=== PATIENT | female | born 1980 | race Caucasian/White ===

== ENCOUNTER 2020-06-28 15:38 | Emergency (ER) | payer SELFPAY ==
[2020-06-28 15:58] VITALS: BP 119/57
[2020-06-28] MEDS ORDERED: LIDOCAINE-MPF (1%) 10 MG/1 ML VIAL 5 ML INFILTRATI ONE (17:08)
--- NOTE | 2020-06-28 17:08 | Emergency Department Report ---
ED Female HPI - General Chief complaint: Urogenital-Female Stated complaint: STD CHECK Time Seen by Provider: 06/28/20 16:52 Source: patient Mode of arrival: Ambulatory Limitations: No Limitations - History of Present Illness Initial comments: 40-year-old female presents to the ER today with complaints of abnormal vaginal discharge. Patient states that she typically has a normal vaginal discharge, but she noticed in the past 2 months she has been having increasing amounts of discharge. She described as a mucousy discharge with the yellow discoloration to it. Patient admits that she has several sexual partners and some of which she engaged with unprotected intercourse. She states that she is concerned for possible STD. Her last menstrual cycle was 2 days ago. She denies any vaginal pain, rash or itching or any abnormal vaginal bleeding. She denies any pelvic or abdominal pain or back pain. MD Complaint: vaginal discharge -: Gradual (1 mth ) - Related Data Previous Rx's Medication Instructions Recorded Last Taken Type DOXYCYCLINE Hyclate [Vibramycin 100 mg PO Q12HR #14 capsule 06/28/20 Unknown Rx CAP] Allergies Allergy/AdvReac Type Severity Reaction Status Date / Time No Known Allergies Allergy Unverified 03/30/18 09:44 ED Review of Systems ROS: Stated complaint: STD CHECK Other details as noted in HPI Comment: All other systems reviewed and negative Constitutional: denies: chills, fever Eyes: denies: eye pain, eye discharge, vision change ENT: denies: ear pain, throat pain Respiratory: denies: cough, shortness of breath, wheezing Cardiovascular: denies: chest pain, palpitations, dyspnea on exertion, orthopnea, edema, syncope, paroxysmal nocturnal dyspnea Endocrine: no symptoms reported Gastrointestinal: denies: abdominal pain, nausea, vomiting, diarrhea, constipation, hematemesis, melena, hematochezia Genitourinary: discharge. denies: urgency, dysuria, frequency, hematuria, abnormal menses, dyspareunia Musculoskeletal: denies: back pain, joint swelling, arthralgia Skin: denies: rash, lesions, change in color, change in hair/nails Neurological: denies: headache, weakness, numbness, paresthesias, confusion, abnormal gait, vertigo Psychiatric: denies: anxiety, depression Hematological/Lymphatic: denies: easy bleeding, easy bruising ED Past Medical Hx - Past Medical History Previous Medical History?: No - Surgical History Past Surgical History?: No - Social History Smoking Status: Never Smoker - Medications Home Medications: Home Medications Medication Instructions Recorded Confirmed Last Taken Type DOXYCYCLINE Hyclate [Vibramycin 100 mg PO Q12HR #14 capsule 06/28/20 Unknown Rx CAP] ED Physical Exam - General Limitations: No Limitations General appearance: alert, in no apparent distress - Head Head exam: Present: atraumatic, normocephalic, normal inspection - ENT ENT exam: Present: normal exam, mucous membranes moist - Respiratory Respiratory exam: Present: normal lung sounds bilaterally. Absent: respiratory distress - Cardiovascular Cardiovascular Exam: Present: regular rate, normal rhythm, normal heart sounds - GI/Abdominal GI/Abdominal exam: Present: soft. Absent: distended, tenderness, guarding, rebound - Extremities Exam Extremities exam: Present: normal inspection - Back Exam Back exam: Present: normal inspection - Neurological Exam Neurological exam: Present: alert, oriented X3, CN II-XII intact, normal gait - Psychiatric Psychiatric exam: Present: normal affect, normal mood - Skin Skin exam: Present: intact ED Course Vital Signs 06/28/20 15:57 Temperature 98.2 F Pulse Rate 58 L Respiratory 17 Rate Blood Pressure 119/57 [Right] O2 Sat by Pulse 100 Oximetry Critical care attestation.: If time is entered above; I have spent that time in minutes in the direct care of this critically ill patient, excluding procedure time. ED Disposition Clinical Impression: Vaginitis, Concern about STD in female without diagnosis Disposition: DC-01 TO HOME OR SELFCARE Is pt being admited?: No Does the pt Need Aspirin: No Condition: Stable Instructions: Vaginitis, [id number], Safe Sex Additional Instructions: Recommend that you take the doxycycline as prescribed. Recommend that you follow-up with the local health department for HIV and hepatitis testing. I recommend that you practice safe sex. Recommend no sexual intercourse for the next 7 days. Your partners should get tested and treated as well. Follow-up with the PHYSICS DEPARTMENT CHAIR or local health department. Return to the ER if your symptoms changes or worsens in any way. Prescriptions: DOXYCYCLINE Hyclate [Vibramycin CAP] 100 mg PO Q12HR #14 capsule Referrals: NURY RICE MD [Staff Physician] - 3-5 Days [facility] [Provider Group] - 3-5 Days Time of Disposition: 18:06
[2020-06-28 17:50] LABS: Bacteria,Urine 1+ /HPF (Negative); Bilirubin,Urine NEG (Negative); Blood,Urine NEG (Negative); Color,Urine Yellow (Yellow); HCG Qualitative,Urine Negative (Negative); Mucus,Urine 2+ /HPF; Protein,Urine <15 mg/dL mg/dL (Negative); Urobilinogen,Urine < 2.0 mg/dL (<2.0)
== END 2020-06-28 18:17 | disposition home or self-care (01) ==
LOC: ED 15:38
DX: N76.0 Acute vaginitis (principal); Z20.2 Contact with and (suspected) exposure to infections with a predominantly sexual mode of transmission; Z79.899 Other long term (current) drug therapy
CPT/HCPCS: 81001; 81025; 87210; 87591; 96372; 99283; J0696

== ENCOUNTER 2021-02-06 15:30 | Emergency (ER) | payer SELFPAY | END 2021-02-06 16:28 | disposition left against medical advice (07) | LOC: ED 15:30 | DX: Z53.21 Procedure and treatment not carried out due to patient leaving prior to being seen by health care provider (principal) ==

== ENCOUNTER 2021-04-04 14:43 | Emergency (ER) | payer SELFPAY | END 2021-04-04 17:18 | disposition left against medical advice (07) | LOC: ED 14:43 | DX: R42 Dizziness and giddiness (principal); Z53.21 Procedure and treatment not carried out due to patient leaving prior to being seen by health care provider ==

== ENCOUNTER 2021-04-10 11:54 | Emergency (ER) | payer SELFPAY ==
[2021-04-10 16:30] VITALS: BP 167/86
--- NOTE | 2021-04-10 17:21 | Emergency Department Report ---
ED Headache HPI - General Chief Complaint: Headache Stated Complaint: HEADACHE Time Seen by Provider: 04/10/21 17:16 - History of Present Illness Initial Comments: Patient is a 40-year-old female with no significant past medical history is presenting with right-sided facial pain. States she has some congestion. Pain is worse with palpation to the right cheek. States that she feels as though it is swollen however she is not noticed any change when looking in the mirror. Pain is been 8 out of 10 in severity according to the patient. Denies fevers. States the nasal drainage is currently clear. Allergies/Adverse Reactions: Allergies No Known Allergies Allergy (Unverified 04/10/21 16:30) Home Medications: Ambulatory Orders DOXYCYCLINE Hyclate [Vibramycin CAP] 100 mg PO Q12HR #14 capsule 06/28/20 Amoxicillin/Potassium Clav [Augmentin 875-125 Tablet] 1 each PO BID #20 tablet 04/10/21 Fluticasone [Flonase] 1 spray NS QDAY #1 bottle 04/10/21 Ketorolac [Toradol] 10 mg PO Q6H PRN #12 tablet 04/10/21 predniSONE [Deltasone] 50 mg PO QDAY #5 tab 04/10/21 ED Review of Systems ROS: Stated complaint: HEADACHE Other details as noted in HPI Comment: All other systems reviewed and negative ED Past Medical Hx - Social History Smoking Status: Never Smoker - Medications Home Medications: Home Medications Medication Instructions Recorded Confirmed Last Taken Type DOXYCYCLINE Hyclate [Vibramycin 100 mg PO Q12HR #14 capsule 06/28/20 Unknown Rx CAP] Amoxicillin/Potassium Clav 1 each PO BID #20 tablet 04/10/21 Unknown Rx [Augmentin 875-125 Tablet] Fluticasone [Flonase] 1 spray NS QDAY #1 bottle 04/10/21 Unknown Rx Ketorolac [Toradol] 10 mg PO Q6H PRN #12 tablet 04/10/21 Unknown Rx predniSONE [Deltasone] 50 mg PO QDAY #5 tab 04/10/21 Unknown Rx ED Physical Exam - General Limitations: No Limitations General appearance: alert, in no apparent distress - Head Head exam: Present: atraumatic, normocephalic, other (pain palpation of right maxillary area) - Eye Eye exam: Present: normal appearance, PERRL, EOMI - ENT ENT exam: Present: mucous membranes moist - Neck Neck exam: Present: normal inspection - Respiratory Respiratory exam: Present: normal lung sounds bilaterally. Absent: respiratory distress, wheezes, rales, rhonchi - Cardiovascular Cardiovascular Exam: Present: regular rate, normal rhythm. Absent: systolic murmur, diastolic murmur, rubs, gallop - GI/Abdominal GI/Abdominal exam: Present: soft, normal bowel sounds. Absent: distended, tenderness, guarding, rebound - Extremities Exam Extremities exam: Present: normal inspection - Back Exam Back exam: Present: normal inspection - Neurological Exam Neurological exam: Present: alert, oriented X3 - Psychiatric Psychiatric exam: Present: normal affect, normal mood - Skin Skin exam: Present: warm, dry, intact, normal color. Absent: rash ED Course Vital Signs 04/10/21 16:27 Temperature 97.9 F Pulse Rate 60 Respiratory 18 Rate Blood Pressure 167/86 [Right] O2 Sat by Pulse 100 Oximetry ED Medical Decision Making - Medical Decision Making Patient is a 40-year-old female with right maxillary sinus tenderness. She does have some congestion and some nasal drainage. Patient was started on medication for symptomatic relief of acute sinus infection. Critical care attestation.: If time is entered above; I have spent that time in minutes in the direct care of this critically ill patient, excluding procedure time. ED Disposition Clinical Impression: Acute maxillary sinusitis Qualifiers: Recurrence: non-recurrent Qualified Code(s): J01.00 - Acute maxillary sinusitis, unspecified Disposition: HOME / SELF CARE / HOMELESS Is pt being admited?: No Does the pt Need Aspirin: No Condition: Stable Instructions: Sinusitis, Adult Referrals: PRIMARY CARE, [Primary Care Provider] - 3-5 Days Time of Disposition: 17:19
== END 2021-04-10 17:41 | disposition home or self-care (01) ==
LOC: ED 11:54
DX: J01.00 Acute maxillary sinusitis, unspecified (principal); Z79.899 Other long term (current) drug therapy
CPT/HCPCS: 99282

== ENCOUNTER 2021-06-29 19:55 | Emergency (ER) | payer SELFPAY ==
--- NOTE | 2021-06-29 20:50 | XRay Report ---
CHEST 2 VIEWS, 06/29/2021 INDICATION: Dizziness COMPARISON: Chest radiograph, 03/30/2018 FINDINGS: Support devices: None. Heart: The cardiac silhouette is normal in size. Lungs/pleura: The lungs are clear of focal airspace disease or significant pleural effusion. Additional findings: No significant acute abnormality. IMPRESSION: 1. No evidence of acute cardiopulmonary process. Signer Name: Mary Hill MD Signed: 06/29/2021 8:46 PM Workstation Name: [email or web address]
[2021-06-29] MEDS ORDERED: SODIUM CHLORIDE 0.9% 1000 ML 1,000 ML IV ONE (20:55)
[2021-06-29] MEDS ORDERED: MECLIZINE 25 MG TAB PO ONE (20:55)
[2021-06-29 21:19] LABS: Basophils # (Auto) 0.1 K/mm3 (0.0-0.1); Basophils % (Auto) 0.9 % (0.0-1.8); Eosinophils % (Auto) 1.2 % (0.0-4.3); Hematocrit 38.5 % (30.3-42.9); Hemoglobin 12.5 gm/dl (10.1-14.3); Lymphocytes # (Auto) 2.6 K/mm3 (1.2-5.4); Lymphocytes % (Auto) 35.3 % (13.4-35.0); Mean Corpuscular HGB Conc 33 % (30-34); Mean Corpuscular Volume 88 fl (79-97); Monocytes % (Auto) 7.1 % (0.0-7.3); Platelet Count 336 K/mm3 (140-440); Red Blood Count 4.37 M/mm3 (3.65-5.03); Red Cell Distribution Width 12.5 % (13.2-15.2)
[2021-06-29 21:29] LABS: Alanine Aminotransferase 13 units/L (7-56); Blood Urea Nitrogen 12 mg/dL (7-17); Calcium 8.8 mg/dL (8.4-10.2); Hemolysis Index 14
[2021-06-29 21:31] LABS: BUN/Creatinine Ratio 24
[2021-06-29] MEDS ORDERED: ONDANSETRON 4 MG/2 ML INJ IV ONE (21:44)
[2021-06-29 21:52] LABS: INR 0.82 (0.87-1.13)
[2021-06-29 21:55] LABS: Creatine Kinase MB 1.7 ng/mL (0.0-4.0)
--- NOTE | 2021-06-29 22:39 | Emergency Department Report ---
ED Dizziness HPI - General Chief Complaint: Dizziness Stated Complaint: DIZZY/LIGHTHEADED Time Seen by Provider: 06/29/21 20:54 Source: patient Mode of arrival: Ambulatory Limitations: No Limitations - History of Present Illness Initial Comments: Patient states about 30 mins ago patient states she woke up from her sleep and felt light headed and dizziness with nausea vomiting and headaches. patient denes passing out pt had history of hte same no other neurological symtpoms MD Complaint: dizziness, lightheadedness -: Gradual, minutes(s) Timing: gradual onset Description: "room spinning", nausea History of Same: Yes History of Trauma: No Severity: moderate Improves With: nothing Associated Symptoms: denies: denies other symptoms, ataxia, chest pain, confusion, diaphoresis, fever/chills, loss of appetite - Related Data Previous Rx's Medication Instructions Recorded Last Taken Type DOXYCYCLINE Hyclate [Vibramycin 100 mg PO Q12HR #14 capsule 06/28/20 Unknown Rx CAP] Amoxicillin [Trimox CAP] 500 mg PO Q8H #21 capsule 04/10/21 Unknown Rx Amoxicillin/Potassium Clav 1 each PO BID #20 tablet 04/10/21 Unknown Rx [Augmentin 875-125 Tablet] Fluticasone [Flonase] 1 spray NS QDAY #1 bottle 04/10/21 Unknown Rx Ketorolac [Toradol] 10 mg PO Q6H PRN #12 tablet 04/10/21 Unknown Rx predniSONE [Deltasone] 50 mg PO QDAY #5 tab 04/10/21 Unknown Rx Meclizine HCl 25 mg PO DAILY PRN #14 06/29/21 Unknown Rx Ondansetron [Zofran Odt] 4 mg PO Q8HR #14 tab.rapdis 06/29/21 Unknown Rx Allergies Allergy/AdvReac Type Severity Reaction Status Date / Time No Known Allergies Allergy Unverified 04/10/21 16:30 ED Review of Systems ROS: Stated complaint: DIZZY/LIGHTHEADED Other details as noted in HPI Constitutional: denies: chills, fever Eyes: denies: eye pain, eye discharge, vision change ENT: denies: ear pain, throat pain Respiratory: denies: cough, shortness of breath, wheezing Cardiovascular: denies: chest pain, palpitations Endocrine: no symptoms reported Gastrointestinal: denies: abdominal pain, nausea, diarrhea Genitourinary: denies: urgency, dysuria, discharge Musculoskeletal: denies: back pain, joint swelling, arthralgia Skin: denies: rash, lesions Neurological: denies: headache, weakness, paresthesias Psychiatric: denies: anxiety, depression Hematological/Lymphatic: denies: easy bleeding, easy bruising ED Past Medical Hx - Past Medical History Previous Medical History?: No - Surgical History Past Surgical History?: No - Social History Smoking Status: Current Every Day Smoker Substance Use Type: Alcohol - Medications Home Medications: Home Medications Medication Instructions Recorded Confirmed Last Taken Type DOXYCYCLINE Hyclate [Vibramycin 100 mg PO Q12HR #14 capsule 06/28/20 Unknown Rx CAP] Amoxicillin [Trimox CAP] 500 mg PO Q8H #21 capsule 04/10/21 Unknown Rx Amoxicillin/Potassium Clav 1 each PO BID #20 tablet 04/10/21 Unknown Rx [Augmentin 875-125 Tablet] Fluticasone [Flonase] 1 spray NS QDAY #1 bottle 04/10/21 Unknown Rx Ketorolac [Toradol] 10 mg PO Q6H PRN #12 tablet 04/10/21 Unknown Rx predniSONE [Deltasone] 50 mg PO QDAY #5 tab 04/10/21 Unknown Rx Meclizine HCl 25 mg PO DAILY PRN #14 06/29/21 Unknown Rx Ondansetron [Zofran Odt] 4 mg PO Q8HR #14 tab.rapdis 06/29/21 Unknown Rx ED Physical Exam - General Limitations: No Limitations General appearance: alert, in no apparent distress - Head Head exam: Present: atraumatic, normocephalic - Eye Eye exam: Present: normal appearance - ENT ENT exam: Present: mucous membranes moist - Neck Neck exam: Present: normal inspection - Respiratory Respiratory exam: Present: normal lung sounds bilaterally. Absent: respiratory distress - Cardiovascular Cardiovascular Exam: Present: regular rate, normal rhythm. Absent: systolic murmur, diastolic murmur, rubs, gallop - GI/Abdominal GI/Abdominal exam: Present: soft, normal bowel sounds - Extremities Exam Extremities exam: Present: normal inspection - Back Exam Back exam: Present: normal inspection - Neurological Exam Neurological exam: Present: alert, oriented X3 - Psychiatric Psychiatric exam: Present: normal affect, normal mood - Skin Skin exam: Present: warm, dry, intact, normal color. Absent: rash ED Course Vital Signs 04/02/22 04/02/22 04/02/22 20:03 20:54 21:00 Temperature 97.2 F L Pulse Rate 50 L 47 L 47 L Respiratory 16 10 L 18 Rate Blood Pressure 118/48 Blood Pressure [Left] O2 Sat by Pulse 99 99 100 Oximetry 06/29/21 06/29/21 06/29/21 21:16 21:30 21:46 Temperature Pulse Rate 55 L 48 L 65 Respiratory 18 15 13 Rate Blood Pressure 110/47 110/47 Blood Pressure [Left] O2 Sat by Pulse 98 99 99 Oximetry 06/29/21 06/29/21 06/29/21 22:00 22:08 22:16 Temperature Pulse Rate 64 68 52 L Respiratory 18 12 14 Rate Blood Pressure 101/37 101/37 101/37 Blood Pressure 101/37 [Left] O2 Sat by Pulse 99 100 98 Oximetry ED Medical Decision Making - Lab Data Result diagrams: 06/29/21 20:22 06/29/21 20:22 - EKG Data -: EKG Interpreted by Me EKG shows normal: sinus rhythm Rate: bradycardia - Radiology Data Radiology results: report reviewed, image reviewed - Medical Decision Making work up unremarkabl e, fluids given and zofrana nd meclizine , feels better, pt had history of bradycardia before, will refer to ENT Critical care attestation.: If time is entered above; I have spent that time in minutes in the direct care of this critically ill patient, excluding procedure time. ED Disposition Clinical Impression: Vertigo Disposition: 01 HOME / SELF CARE / HOMELESS Is pt being admited?: No Does the pt Need Aspirin: No Condition: Stable Referrals: PRIMARY CARE, [Primary Care Provider] - 3-5 Days
[2021-06-29 23:00] VITALS: BP 102/52
--- NOTE | 2021-06-30 15:17 | Electrocardiograph Report ---
[facility] Test Date: 2021-06-29 Test Time: 20:06:14 Pat Name: ABIMBOLA CEBALLOS Department: Room: Gender: F [employer] Machine Operator: ANDRE : 1980 Requested By: MICKY AMATO Order Number: [id number] Reading MD: Barrington Charles Measurements Intervals Hobbs Rate: 49 P: 37 VA: 154 QRS: 89 QRSD: 84 T: 43 QT: 472 QTc: 425 Interpretive Statements Slow sinus arrhythmia No previous ECG available for comparison Electronically Signed On 06-30-2021 15:17:16 EDT by Barrington Charles
== END 2021-06-29 23:26 | disposition home or self-care (01) ==
LOC: ED 19:55
DX: R42 Dizziness and giddiness (principal); F17.200 Nicotine dependence, unspecified, uncomplicated
CPT/HCPCS: 36415; 71046; 80053; 82550; 82553; 83690; 84484; 85025; 85610; 93005; 96361; 96374; 99284; J2405; J7030; Q0162

== ENCOUNTER 2021-08-01 20:34 | Emergency (ER) | payer SELFPAY ==
[2021-08-01] MEDS ORDERED: IBUPROFEN 600 MG TAB PO ONE (22:00)
[2021-08-01] MEDS ORDERED: LIDOCAINE (1%) 10 MG/1 ML VIAL 20 ML MDV INFILTRATI ONE (22:00)
[2021-08-01] MEDS ORDERED: TETANUS,DIPH,PERTUSS(ACELL) VACCINE 0.5 ML SYRINGE IM ONE (22:00)
[2021-08-01] MEDS ORDERED: ONDANSETRON 4 MG ODT TAB PO ONE (22:16)
[2021-08-01] MEDS ORDERED: HYDROcodone/ACETAMINOPHEN 5-325 MG TAB PO ONE (22:16)
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
[2021-08-02 00:22] VITALS: BP 114/53
== END 2021-08-02 00:21 | disposition home or self-care (01) ==
LOC: ED 20:34
DX: S61.411A Laceration without foreign body of right hand, initial encounter (principal); F17.200 Nicotine dependence, unspecified, uncomplicated; Z72.89 Other problems related to lifestyle; Z79.899 Other long term (current) drug therapy; Y04.8XXA Assault by other bodily force, initial encounter; Y93.89 Activity, other specified; Y92.89 Other specified places as the place of occurrence of the external cause; Y99.8 Other external cause status
CPT/HCPCS: 90471; 90715; 99282; J3490; Q0162

== ENCOUNTER 2021-08-06 18:05 | Emergency (ER) | payer SELFPAY | END 2021-08-06 18:10 | disposition left against medical advice (07) | LOC: ED 18:05 | DX: R42 Dizziness and giddiness (principal); Z53.21 Procedure and treatment not carried out due to patient leaving prior to being seen by health care provider ==

== ENCOUNTER 2021-08-07 07:51 | Emergency (ER) | payer SELFPAY ==
--- NOTE | 2021-08-07 10:58 | Emergency Department Report ---
ED Medical Clearance HPI - General Chief complaint: Medical Clearance Stated complaint: VERTIGO Time Seen by Provider: 08/07/21 10:53 Source: patient Mode of arrival: Ambulatory - History of Present Illness Initial comments: 41-year-old obese female presents to the emergency room requesting a refill on her vertigo medication. Patient states yesterday she had an episode. At this moment she denies any nausea no vomiting no dizziness or feeling of the room is spinning. She denies any chest pain shortness of breathing or headache. Patient currently does not have a primary care provider. Onset/Timin -: days(s) (Yesterday) Reason for Medical Clearance: other (Medication refill for vertigo) Alledged Intoxication: No Compliant with Home Medications: No Traumatic Symptoms: denies traumatic injury Associated Symptoms: denies: chest pain, shortness of breath, palpitations, diaphoresis, denies other symptoms, cough, fever/chills, headaches, anorexia, rash, seizure, syncope, weakness Treatments Prior to Arrival: none Home medications: Previous Rx's Medication Instructions Recorded Last Taken Type DOXYCYCLINE Hyclate [Vibramycin 100 mg PO Q12HR #14 capsule 06/28/20 Unknown Rx CAP] Amoxicillin [Trimox CAP] 500 mg PO Q8H #21 capsule 04/10/21 Unknown Rx Amoxicillin/Potassium Clav 1 each PO BID #20 tablet 04/10/21 Unknown Rx [Augmentin 875-125 Tablet] Fluticasone [Flonase] 1 spray NS QDAY #1 bottle 04/10/21 Unknown Rx Ketorolac [Toradol] 10 mg PO Q6H PRN #12 tablet 04/10/21 Unknown Rx predniSONE [Deltasone] 50 mg PO QDAY #5 tab 04/10/21 Unknown Rx Ondansetron [Zofran Odt] 4 mg PO Q8HR #14 tab.rapdis 06/29/21 Unknown Rx Ibuprofen [Motrin] 800 mg PO Q8HR PRN #30 tablet 08/02/21 Unknown Rx cephALEXin [Keflex] 500 mg PO Q8HR #30 cap 08/02/21 Unknown Rx Meclizine HCl 25 mg PO DAILY PRN #14 08/07/21 Unknown Rx Allergies/Adverse reactions: Allergies Allergy/AdvReac Type Severity Reaction Status Date / Time No Known Allergies Allergy Unverified 08/07/21 08:56 ED Review of Systems ROS: Stated complaint: VERTIGO Other details as noted in HPI Comment: All other systems reviewed and negative ED Past Medical Hx - Social History Smoking Status: Current Every Day Smoker Substance Use Type: Alcohol - Medications Home Medications: Home Medications Medication Instructions Recorded Confirmed Last Taken Type DOXYCYCLINE Hyclate [Vibramycin 100 mg PO Q12HR #14 capsule 06/28/20 Unknown Rx CAP] Amoxicillin [Trimox CAP] 500 mg PO Q8H #21 capsule 04/10/21 Unknown Rx Amoxicillin/Potassium Clav 1 each PO BID #20 tablet 04/10/21 Unknown Rx [Augmentin 875-125 Tablet] Fluticasone [Flonase] 1 spray NS QDAY #1 bottle 04/10/21 Unknown Rx Ketorolac [Toradol] 10 mg PO Q6H PRN #12 tablet 04/10/21 Unknown Rx predniSONE [Deltasone] 50 mg PO QDAY #5 tab 04/10/21 Unknown Rx Ondansetron [Zofran Odt] 4 mg PO Q8HR #14 tab.rapdis 06/29/21 Unknown Rx Ibuprofen [Motrin] 800 mg PO Q8HR PRN #30 tablet 08/02/21 Unknown Rx cephALEXin [Keflex] 500 mg PO Q8HR #30 cap 08/02/21 Unknown Rx Meclizine HCl 25 mg PO DAILY PRN #14 08/07/21 Unknown Rx ED Physical Exam - General Limitations: No Limitations General appearance: alert, in no apparent distress - Head Head exam: Present: atraumatic, normocephalic - Eye Eye exam: Present: EOMI - ENT ENT exam: Present: mucous membranes moist - Neck Neck exam: Present: normal inspection, full ROM - Respiratory Respiratory exam: Absent: respiratory distress - Cardiovascular Cardiovascular Exam: Present: regular rate - Extremities Exam Extremities exam: Present: normal inspection, full ROM - Back Exam Back exam: Present: normal inspection - Neurological Exam Neurological exam: Present: alert, oriented X3, normal gait - Psychiatric Psychiatric exam: Present: normal affect, normal mood, anxious - Skin Skin exam: Present: warm, dry, intact, normal color. Absent: rash ED Course Vital Signs 08/07/21 08:54 Temperature 98.6 F Pulse Rate 55 L Respiratory 16 Rate Blood Pressure 127/74 [Right] O2 Sat by Pulse 100 Oximetry ED Medical Decision Making - Medical Decision Making 41-year-old obese female presents to the emergency room requesting a refill on her vertigo medication. Patient states yesterday she had an episode. At this moment she denies any nausea no vomiting no dizziness or feeling of the room is spinning. She denies any chest pain shortness of breathing or headache. Patient currently does not have a primary care provider. Refill of Antivert. Referral to her primary care provider. ED Disposition Clinical Impression: Medication refill Disposition: HOME / SELF CARE / HOMELESS Is pt being admited?: No Does the pt Need Aspirin: No Condition: Stable Instructions: Vertigo, [id number] Additional Instructions: Please follow-up with a primary care provider. Prescriptions: Meclizine HCl 25 mg PO DAILY PRN #14 PRN Reason: Vertigo Referrals: NURY RICE MD [Staff Physician] - 3-5 Days Forms: Work/School Release Form(ED) Time of Disposition: 10:58
[2021-08-07 11:29] VITALS: BP 151/69
== END 2021-08-07 11:30 | disposition home or self-care (01) ==
LOC: ED 07:51
DX: R42 Dizziness and giddiness (principal); Z76.0 Encounter for issue of repeat prescription
CPT/HCPCS: 99282